=== PATIENT | female | born 1940 | race Caucasian/White ===

== ENCOUNTER 2016-10-29 14:22 | Emergency (ER) | payer OTHER, MEDICAID ==
[~2016-10-29] VITALS: Ht 152.4 cm; Wt 40.8 kg
[~2016-10-29 14:22] MED LIST: ALEN70TA3 PO; AMIT25TA9 PO; ATEN-41 PO; ATENOLOL; DOCU250C PO; DONE10TA44 PO; DULO60CA41 PO; GABA-531 PO; GUAI-787 PO; IBUP-1969 PO; LEVO750T45 PO; LORA0.5T PO; LORAZEPAM; MORP15TA PO; MORPHINE; MULT-1117 PO; OMEP-130 PO; ZIN220 PO; ZOLP5TAB7 PO; ZOLPIDEM; [UNRECOGNIZED DRUG - CODE] PO
[2016-10-29 14:55] VITALS: BP 109/69; PULSE 72; RESP 14; TEMP 97.7; O2SAT 90
--- NOTE | 2016-10-29 15:08 | NUR ---
Patient to ER bed 8 to gown for evaluation. Side rails up.
--- NOTE | 2016-10-29 15:09 | NUR ---
ER at bedside examining patient.
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
[2016-10-29] MEDS ORDERED: LIDOCAINE 1% 10 MG/ML, 20 ML MDV IJ ONE (15:15)
[2016-10-29] MEDS ORDERED: BACITRACIN 1 GM OINT TP ONE (15:15)
--- NOTE | 2016-10-29 15:45 | NUR ---
Patient and daughter given written and verbal discharge instructions and verbalizes understanding. ER MD discussed with patient and daughter the results and treatment provided. ID arm band removed. Rx of Keftab given. Patient educated on pain management and to follow up with PMD. Pain Scale 0/10. Opportunity for questions provided and answered.
[2016-10-29 15:47] VITALS: BP 121/85; PULSE 84; RESP 15; TEMP 97; O2SAT 99
== END 2016-10-29 15:47 | disposition home or self-care (01) ==
LOC: SED 14:22
DX: S81.812A Laceration without foreign body, left lower leg, initial encounter (principal); K21.9 Gastro-esophageal reflux disease without esophagitis; I10 Essential (primary) hypertension; F41.9 Anxiety disorder, unspecified; F32.9 Major depressive disorder, single episode, unspecified; M19.90 Unspecified osteoarthritis, unspecified site; Z88.2 Allergy status to sulfonamides; W22.8XXA Striking against or struck by other objects, initial encounter; Y93.89 Activity, other specified; Y99.8 Other external cause status; Y92.89 Other specified places as the place of occurrence of the external cause
CPT/HCPCS: 12002; 99283; J2001

== ENCOUNTER 2016-10-29 22:06 | Emergency (ER) | payer OTHER, MEDICAID ==
[~2016-10-29] VITALS: Ht 157.5 cm; Wt 59.0 kg
[~2016-10-29 22:06] MED LIST changes: -ATENOLOL; -IBUP-1969 PO; -LORAZEPAM; -MORPHINE; -MULT-1117 PO; -ZIN220 PO; -ZOLPIDEM; -[UNRECOGNIZED DRUG - CODE] PO
[2016-10-29 22:30] VITALS: BP_SYST 121
[2016-10-30 00:57] LABS: ANION GAP 3 (5-15); CALCIUM 8.4 mg/dL (8.4-11.0); CHLORIDE 104 mmol/L (98-107); CREATININE 0.53 mg/dL (0.55-1.30); GLUCOSE 92 mg/dL (70-99); POTASSIUM 3.8 mmol/L (3.5-5.1); SODIUM SERUM 140 mmol/L (136-145); UREA NITROGEN, BLOOD 8 mg/dL (8-21)
[2016-10-30 01:01] LABS: INR 1.2 (0.8-1.2); PROTHROMBIN TIME 13.3 SECS (9.5-12.5)
[2016-10-30 01:02] LABS: ALANINE AMINOTRANSFERASE 14 U/L (12-78); ALBUMIN 2.9 g/dL (3.4-4.8); ASPARTATE AMINOTRANSFERASE 16 U/L (10-37); TOTAL BILIRUBIN 0.4 mg/dL (0.0-1.0); TOTAL PROTEIN, SERUM 6.3 g/dL (6.4-8.3)
[2016-10-30 01:21] LABS: BASOPHILS # (AUTO) 0.1 K/uL (0.0-0.2); BASOPHILS % (AUTO) 1.5 % (0.0-2.0); EOSINOPHILS % (AUTO) 0.7 % (0.0-4.0); HEMATOCRIT 27.6 % (36-48); HEMOGLOBIN 8.7 g/dL (12.0-16.0); LYMPHOCYTES # (AUTO) 1.4 K/uL (1.0-5.5); LYMPHOCYTES % (AUTO) 27.1 % (20.5-51.5); MEAN CORPUSCULAR HEMOGLOBIN 26 pg (27-31); MEAN CORPUSCULAR HGB CONC 32 % (32-36); MEAN CORPUSCULAR VOLUME 81 fL (79.0-98.0); MONOCYTES # (AUTO) 0.6 K/uL (0.0-1.0); MONOCYTES % (AUTO) 11.7 % (1.7-9.3); NEUTROPHILS # (AUTO) 3.1 K/uL (1.8-7.7); PLATELET COUNT (AUTO) 186 K/uL (130-430); RED BLOOD CELL COUNT(AUTO) 3.41 MIL/uL (4.2-6.2); WHITE BLOOD COUNT (AUTO) 5.2 K/uL (4.8-10.8)
[2016-10-30] MEDS ORDERED: MORPHINE 2 MG/ML INJ. SYRINGE IM ONE (02:30)
[2016-10-30] MEDS ORDERED: ACETAMINOPHEN 500 MG TABLET PO ONE (09:30)
[2016-10-30 11:55] VITALS: BP_SYST 128
== END 2016-10-30 11:55 | disposition home or self-care (01) ==
LOC: SED 22:06
DX: L76.22 Postprocedural hemorrhage of skin and subcutaneous tissue following other procedure (principal); K21.9 Gastro-esophageal reflux disease without esophagitis; I10 Essential (primary) hypertension; F32.9 Major depressive disorder, single episode, unspecified; F41.9 Anxiety disorder, unspecified; M19.90 Unspecified osteoarthritis, unspecified site; Z88.2 Allergy status to sulfonamides
CPT/HCPCS: 36415; 80053; 85025; 85610; 85730; 96372; 99284; J2270

== ENCOUNTER 2016-11-25 21:50 | Inpatient (IN) | payer OTHER, MEDICAID ==
[~2016-11-25] VITALS: Ht 154.9 cm; Wt 39.0 kg
[~2016-11-25 21:50] MED LIST changes: +ATENOLOL; +IBUP-1969 PO; +LORAZEPAM; +MORPHINE; +MULT-1117 PO; +ZIN220 PO; +ZOLPIDEM; +[UNRECOGNIZED DRUG - CODE] PO
[2016-11-25 21:58] VITALS: BP 103/66; PULSE 80; RESP 18; TEMP 99.4; O2SAT 98
--- NOTE | 2016-11-25 21:58 | NUR ---
Placed in room 07 . Placed on acid cleaner, blood pressure machine and pulse oximeter. To gown for exam. Side rails up. Report given to LUIS ALBERTO Paul.
--- NOTE | 2016-11-25 22:00 | NUR ---
PT'S FAMILY STATES SHE HAS BEEN MORE CONFUSED THAN NORMAL, WHEN TO GO SEE HER AND DECIDED TO TAKE HER TO THE ER. NO N/V/D, OR LACY. NO REPORT OF FALL. SAFETY PRECAUTIONS IN PLACE, WILL CONTINUE TO MONITOR.
--- NOTE | 2016-11-25 22:20 | NUR ---
PAULO Lim at bedside examining patient.
[2016-11-25] MEDS ORDERED: ESOM20CA38 PO (22:33)
[2016-11-25] MEDS ORDERED: CEPH-568 PO (22:36)
[2016-11-25 22:43] LABS: BILIRUBIN,URINE NEGATIVE (NEGATIVE); BLOOD, URINE NEGATIVE (NEGATIVE); CLARITY/URINE HAZY (CLEAR); COLOR,URINE YELLOW (YELLOW); GLUCOSE,URINE NEGATIVE (NEGATIVE); KETONES,URINE TRACE (NEGATIVE); LEUKOCYTE ESTERASE ,URINE NEGATIVE (NEGATIVE); NITRITE, URINE NEGATIVE (NEGATIVE); PROTEIN URINE TRACE (NEGATIVE); UROBILINOGEN,URINE 0.2 (0.2-1.0)
[2016-11-25] MEDS ORDERED: FOLIC ACID 1 MG, THIAMINE HCL 100 MG, MAGNESIUM SULFATE 1 GM, MVI 10 ML in NACL 0.9% 1,... IV ONE (22:45)
[2016-11-25 23:02] LABS: BASOPHILS % (AUTO) 0.5 % (0.0-2.0); HEMATOCRIT 29.3 % (36-48); HEMOGLOBIN 8.9 g/dL (12.0-16.0); LYMPHOCYTES % (AUTO) 27.1 % (20.5-51.5); MEAN CORPUSCULAR HEMOGLOBIN 24 pg (27-31); MEAN CORPUSCULAR HGB CONC 30 % (32-36); MEAN CORPUSCULAR VOLUME 79 fL (79.0-98.0); MONOCYTES # (AUTO) 0.5 K/uL (0.0-1.0); MONOCYTES % (AUTO) 13.2 % (1.7-9.3); NEUTROPHILS # (AUTO) 2.4 K/uL (1.8-7.7); NEUTROPHILS % (AUTO) 58.2 % (40.0-70.0); PLATELET COUNT (AUTO) 240 K/uL (130-430); RED BLOOD CELL COUNT(AUTO) 3.73 MIL/uL (4.2-6.2); RED CELL DISTRIBUTION WIDTH 18.4 % (9.0-15.0); WHITE BLOOD COUNT (AUTO) 3.9 K/uL (4.8-10.8)
[2016-11-25 23:18] LABS: ALANINE AMINOTRANSFERASE 19 U/L (12-78); ALBUMIN 3.1 g/dL (3.4-4.8); ASPARTATE AMINOTRANSFERASE 26 U/L (10-37); CALCIUM 9.1 mg/dL (8.4-11.0); CHLORIDE 98 mmol/L (98-107); CREATININE 0.88 mg/dL (0.55-1.30); GLUCOSE 118 mg/dL (70-99); SALICYLATE 1 mg/dL (3-30); SODIUM SERUM 131 mmol/L (136-145); TOTAL BILIRUBIN 0.3 mg/dL (0.0-1.0); TOTAL PROTEIN, SERUM 7.1 g/dL (6.4-8.3)
[2016-11-25 23:22] LABS: ALCOHOL, BLOOD < 3 mg/dL (<10); ANION GAP < 3 (5-15)
[2016-11-25 23:23] LABS: ACETAMINOPHEN < 1 ug/mL (1-30)
[2016-11-25 23:29] LABS: BACTERIA,URINE FEW /HPF (None Seen); MUCUS,URINE None Seen /LPF (None Seen); WBC,URINE 0-3 /HPF (0-3)
[2016-11-25 23:32] LABS: UREA NITROGEN, BLOOD 12 mg/dL (8-21)
[2016-11-25] MEDS ORDERED: THIAMINE HCL 100 MG/ML VIAL ONE (23:33)
[2016-11-25] MEDS ORDERED: MAGNESIUM SULFATE 1 GM/2 ML VIAL ONE (23:33)
[2016-11-25] MEDS ORDERED: MVI 10 ML VIAL IV ONE (23:33)
[2016-11-25] MEDS ORDERED: FOLIC ACID 5 MG/ML VIAL IV ONE (23:33)
[2016-11-25 23:36] LABS: BARBITURATE, URINE NEGATIVE (NEG <=200); METHAMPHETAMINES SCREEN,URINE NEGATIVE (NEG <=500); URINE AMPHETAMINE NEGATIVE (NEG <=500); URINE METHADONE NEGATIVE (NEG <=200)
[2016-11-25 23:37] LABS: BENZODIAZEPINE, URINE POSITIVE (NEG <=150); CANNABINOID, URINE NEGATIVE (NEG <=50); COCAINE, URINE NEGATIVE (NEG <=150); OPIATE, URINE POSITIVE (NEG <=100); PHENCYCLIDINE SCREEN,URINE NEGATIVE (NEG <=25); UR TRICYCLIC ANTIDEPRESSANTS POSITIVE (NEG <=300); URINE OXYCODONE SCREEN NEGATIVE (NEG <=100); URINE PROPOXYPHENE SCREEN NEGATIVE (NEG <=300)
[2016-11-25 23:40] LABS: INR 1.1 (0.8-1.2); PROTHROMBIN TIME 12.2 SECS (9.5-12.5)
[2016-11-26] MEDS ORDERED: ALENDRONATE SODIUM 70 MG TABLET (FOSAMAX) PO SCH (02:30)
[2016-11-26] MEDS ORDERED: guaiFENesin 200 MG/10 ML UDC PO PRN (02:30)
--- NOTE | 2016-11-26 03:18 | NUR ---
Patient will be admitted to care of DR. LIND. Admitted to MS unit. Will go to room 133A. All Belongings SENT WITH PT. Summary report printed. Report given to RODRIGO HUDSON.
[2016-11-26 03:30] VITALS: BP 114/59; PULSE 70; RESP 18; TEMP 97.5; O2SAT 98
--- NOTE | 2016-11-26 03:30 | NUR ---
Admission Notes Pt is A/Ox2-3, able to make needs known and knows why she came to the hospital, stating "Wanted to make sure that I wasnt confused." Pt denies any pain or sob at this time. Pt oriented to surroundings, call light, and phone. IV to left hand #22g noted, flushed well with NS and re taped and wrapped with kerlix. Multiple open areas noted on skin, pictures taken, documented and filed. Pt placed on air mattress for comfort and cynthia care provided. Pt stated she wanted to get some sleep. Breathing is even and unlabored. Pt stated last bowel movement yesterday. Pain pump noted to left lower abdominal quadrant but not working according to pt. Redness with open wound noted to left trinh, open to air. Pt stating that she fell at home, yellow band placed. Mild excoriation noted to buttocks, z guard applied. Unable to fully discuss plan of care with pt due to passiveness and lack of interest at this time, no family at bedside available. Personal belongings completed. Safety precautions in place, side rails up x3 with bed in lowest, locked position, bed alarm on, and pt placed in room close to nurses station. All needs met at this time. Call light in reach. Will continue to monitor.
[2016-11-26 04:14] VITALS: BP 95/48; PULSE 96; RESP 17; TEMP 98; O2SAT 99
--- NOTE | 2016-11-26 05:29 | NUR ---
Rounds Pt is sleeping comfortably at this time. No acute distress or sob noted. IV intact. All needs met. Safely precautions in place. Call light in hand. Will continue to monitor.
[2016-11-26 07:28] LABS: CALCIUM 8.3 mg/dL (8.4-11.0); CREATININE 0.59 mg/dL (0.55-1.30); GLUCOSE 91 mg/dL (70-99); UREA NITROGEN, BLOOD 10 mg/dL (8-21)
[2016-11-26 07:47] LABS: BASOPHILS % (AUTO) 0.3 % (0.0-2.0); EOSINOPHILS # (AUTO) 0.1 K/uL (0.0-0.4); EOSINOPHILS % (AUTO) 2.6 % (0.0-4.0); HEMATOCRIT 27.1 % (36-48); HEMOGLOBIN 8.2 g/dL (12.0-16.0); LYMPHOCYTES # (AUTO) 1.4 K/uL (1.0-5.5); LYMPHOCYTES % (AUTO) 36.2 % (20.5-51.5); MEAN CORPUSCULAR HEMOGLOBIN 24 pg (27-31); MEAN CORPUSCULAR HGB CONC 30 % (32-36); MEAN CORPUSCULAR VOLUME 79 fL (79.0-98.0); MONOCYTES # (AUTO) 0.7 K/uL (0.0-1.0); MONOCYTES % (AUTO) 17.1 % (1.7-9.3); NEUTROPHILS # (AUTO) 1.6 K/uL (1.8-7.7); NEUTROPHILS % (AUTO) 43.8 % (40.0-70.0); PLATELET COUNT (AUTO) 202 K/uL (130-430); RED BLOOD CELL COUNT(AUTO) 3.45 MIL/uL (4.2-6.2); WHITE BLOOD COUNT (AUTO) 3.8 K/uL (4.8-10.8)
[2016-11-26 08:00] VITALS: BP 98/58; PULSE 85; RESP 18; TEMP 97.8; O2SAT 97
[2016-11-26 08:00] LABS: POTASSIUM 4.2 mmol/L (3.5-5.1)
--- NOTE | 2016-11-26 08:01 | NUR ---
Closing Notes Pt is sleeping comfortably, easily arousable. No acute distress or sob noted. New IV started to RFA #24g and LFA #24g earlier this am at 630, IV fluids infusing well as ordered. VSS. All needs met at this time. Safety precautions in place. Call light in hand. Will continue to monitor.
[2016-11-26] MEDS: DULoxetine HCL 30 MG CAPSULE.DR (CYMBALTA) PO SCH ×2 (08:11→22:09)
[2016-11-26] MEDS: CEPHALEXIN 500 MG CAPSULE PO SCH ×4 (08:11→22:09)
[2016-11-26] MEDS: GABAPENTIN 300 MG CAPSULE PO SCH ×3 (08:11→22:09)
[2016-11-26] MEDS: DOCUSATE SODIUM 250 MG CAPSULE PO SCH (08:11)
[2016-11-26] MEDS: LEVOFLOXACIN 500 MG TABLET PO SCH (08:11)
[2016-11-26] MEDS: MORPHINE SULFATE 30 MG Immediate Release TABLET PO SCH ×2 (08:11→22:09)
[2016-11-26 08:13] LABS: ANION GAP < 3 (5-15); CHLORIDE 103 mmol/L (98-107); SODIUM SERUM 135 mmol/L (136-145)
--- NOTE | 2016-11-26 08:25 | NUR ---
PATIENT IS A/OX3. PATIENT IS BED RESTING. IV NOTED ON RIGHT AND LEFT FA, #24; LEFT IV INFUSED WITH NS 100ML/HR. NO SIGNS OF DISTRESS. BREATHING IS NON LABORED. SAFETY MEASURES ARE IN PLACE. CALL LIGHT IS IN PLACE. WILL CONTINUE TO MONITOR.
[2016-11-26] MEDS: ATENOLOL 25 MG TABLET(TENORMIN) PO SCH (09:00)
[2016-11-26] MEDS: LORazepam 1 MG TABLET PO SCH ×3 (09:00→23:28)
--- NOTE | 2016-11-26 09:14 | NUR ---
Nutrition Update Amando Scale 15 noted. Pt admitted for ALOC, dehydration. Diet: pureed BMI: 16.4 kg/m2 RD to follow per nutrition care standards.
[2016-11-26] MEDS: NACL 0.9% 1,000 ML IV SCH ×3 (09:25→22:47)
--- NOTE | 2016-11-26 11:20 | NUR ---
PATIENT IS AT SLEEPING, NO SIGNS OF DISTRESS NOTED.
[2016-11-26 12:00] VITALS: BP 122/67; PULSE 76; RESP 18; TEMP 99.3; O2SAT 96
[2016-11-26] MEDS ORDERED: BISACODYL 10 MG/SUPPOSITORY RC PRN (12:15)
--- NOTE | 2016-11-26 13:10 | NUR ---
PATIENT FINISHES LUNCH WITHOUT DISTRESS.
--- NOTE | 2016-11-26 15:00 | NUR ---
PATIENT IS PLACED ON BEDPAN FOR VOIDING. NO SIGNS OF DISTRESS NOTED.
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
[2016-11-26 17:36] VITALS: BP 123/64; PULSE 74; RESP 18; TEMP 98.7; O2SAT 96
--- NOTE | 2016-11-26 18:30 | NUR ---
PATIENT STATES THAT SHE WOULD LIKE TO EAT SOMETHING MORE SOLID, BUT ALSO C/O PAIN IN THE MOUTH. DR. LIND IS CALLED. AWAITING CALL BACK.
--- NOTE | 2016-11-26 19:20 | NUR ---
INITIAL NOTES; -Pt is a/ox3, resting in bed. Pt denies any chest pain,pain,sob,or any acute distress. Vital signs 96.8, 116/60,84,20,t1vld=11% r/a. 2 IV sites of left f/a rt hand, patent, both #24, no s/s any infiltration noted after flushed with NS,drsg cdi. IVF NS @ 100ml/hr. Lung sounds clear throughout all lobes. BS present,abdomen soft & nondistended. Assistance with bedpan. Opened wound left trinh-no drainage noted-warm and redness elevated with pillow. Rt lower leg and foot + 1 pitting edema noted.Rt lower leg dry scab. Bassem pedi pulse normal, present. All safety measures in place. Discussed poc, all safety measures, instructed pt not to get out bed by self, if needs assistance, to use call light for assistance, pt verbalized understanding. Fall precaution in place. Call light w/in reach. Continue to monitor pt.
[2016-11-26] MEDS ORDERED: HYDROcodone/ACETAMIN 5-325 MG TAB (NORCO/ VICODIN) PO PRN (20:00)
[2016-11-26] MEDS: DONEPEZIL HCL 5 MG TABLET (ARICEPT) PO SCH (22:09)
[2016-11-26] MEDS: ZOLPIDEM TARTRATE 5 MG TABLET PO SCH (22:09)
[2016-11-26] MEDS: AMITRIPTYLINE HCL 25 MG TABLET (ELAVIL) PO SCH (22:09)
--- NOTE | 2016-11-26 22:09 | NUR ---
ROUNDS; - Pt is c/o generalized pain. Gave all po medications except Ativan po, pt is able to take whole pills w/out crushed, pt tolerated wel, pt wanted Ativan po later. Instructed pt to inform nurse when want to take Ativan, pt verbalized understanding. IV site of left f/a patent,no s/s any infiltration noted. IVF NS @ 100ml/hr. Elevate both lower extremities with pillows. All safety measures in place. Fall precaution in place. Call light w/in reach. Continue to monitor pt.
--- NOTE | 2016-11-26 23:28 | NUR ---
ROUNDS; ATIVAN 0.5 MG PO GIVEN -Ativan 0.5mg po given upon pt requested, pt tolerated well. Pt denies any chest pain,pain, or any acute distress this time. IV site of left f/a patent,no s/s any infiltration noted. IVF NS @ 100ml/hr. Elevate both lower extremities with pillows. All safety measures in place. Bed alarmed, low position, side rails x3. Fall precaution in place. Call light w/in reach. Continue to monitor pt.
--- NOTE | 2016-11-26 23:51 | NUR ---
SANDWICH GIVEN -Pt is hungry, gave a sandwich, pt tolerated.
[2016-11-27 01:17] VITALS: BP 134/64; PULSE 93; RESP 18; TEMP 97.2; O2SAT 93
--- NOTE | 2016-11-27 01:50 | NUR ---
ROUNDS; -Pt is resting. No s/s any chest pain,pain, or any acute distress noted. IV site of left f/a patent,no s/s any infiltration noted. IVF NS @ 100ml/hr. Elevate both lower extremities with pillows. All safety measures in place. Bed alarmed, low position, side rails x3. Fall precaution in place. Call light w/in reach. Continue to monitor
[2016-11-27 04:00] VITALS: BP 151/75; PULSE 83; RESP 16; TEMP 98.4
[2016-11-27] MEDS: NACL 0.9% 1,000 ML IV SCH ×2 (05:30→09:51)
[2016-11-27 06:23] LABS: BASOPHILS % (AUTO) 0.2 % (0.0-2.0); EOSINOPHILS # (AUTO) 0.1 K/uL (0.0-0.4); EOSINOPHILS % (AUTO) 1.4 % (0.0-4.0); HEMATOCRIT 25.9 % (36-48); HEMOGLOBIN 7.9 g/dL (12.0-16.0); LYMPHOCYTES # (AUTO) 1.5 K/uL (1.0-5.5); LYMPHOCYTES % (AUTO) 30.9 % (20.5-51.5); MEAN CORPUSCULAR HEMOGLOBIN 24 pg (27-31); MEAN CORPUSCULAR HGB CONC 31 % (32-36); MEAN CORPUSCULAR VOLUME 79 fL (79.0-98.0); MONOCYTES # (AUTO) 0.5 K/uL (0.0-1.0); NEUTROPHILS # (AUTO) 2.9 K/uL (1.8-7.7); NEUTROPHILS % (AUTO) 57.5 % (40.0-70.0); PLATELET COUNT (AUTO) 222 K/uL (130-430); RED BLOOD CELL COUNT(AUTO) 3.27 MIL/uL (4.2-6.2); RED CELL DISTRIBUTION WIDTH 18.5 % (9.0-15.0)
--- NOTE | 2016-11-27 06:41 | NUR ---
CLOSING NOTES; -Pt is resting. No s/s any chest pain,pain, or any acute distress noted. IV site of left f/a patent,no s/s any infiltration noted. IVF NS @ 100ml/hr. Elevate both lower extremities with pillows. All safety measures in place. Bed alarmed, low position, side rails x3. Fall precaution in place. Call light w/in reach. Will endorse to coming nurse to continue care.
[2016-11-27 06:48] LABS: ANION GAP 2 (5-15); CALCIUM 7.7 mg/dL (8.4-11.0); CHLORIDE 106 mmol/L (98-107); CREATININE 0.48 mg/dL (0.55-1.30); GLUCOSE 89 mg/dL (70-99); POTASSIUM 4.2 mmol/L (3.5-5.1); SODIUM SERUM 138 mmol/L (136-145); UREA NITROGEN, BLOOD 4 mg/dL (8-21)
--- NOTE | 2016-11-27 08:00 | NUR ---
PATIENT IS CONFUSED AND SOMEWHAT AGITATED. IV NOTED ON RIGHT AND LEFT FA, #24; LEFT IV INFUSED WITH NS 100ML/HR. BREATHING IS NON LABORED. SAFETY MEASURES ARE IN PLACE. CALL LIGHT IS IN PLACE. WILL CONTINUE TO MONITOR.
[2016-11-27] MEDS: LORazepam 1 MG TABLET PO SCH (09:00)
[2016-11-27] MEDS: DOCUSATE SODIUM 250 MG CAPSULE PO SCH (09:00)
--- NOTE | 2016-11-27 09:28 | NUR ---
PATIENT'S STILL CONFUSED AND AGITATED. DR. LIND IS INFORMED OF THE SITUATION.
[2016-11-27] MEDS: DULoxetine HCL 30 MG CAPSULE.DR (CYMBALTA) PO SCH ×2 (09:49→21:06)
[2016-11-27] MEDS: LEVOFLOXACIN 500 MG TABLET PO SCH (09:49)
[2016-11-27] MEDS: CEPHALEXIN 500 MG CAPSULE PO SCH ×2 (09:49→13:00)
[2016-11-27] MEDS: MORPHINE SULFATE 30 MG Immediate Release TABLET PO SCH (09:50)
[2016-11-27] MEDS: GABAPENTIN 300 MG CAPSULE PO SCH ×3 (09:50→21:06)
[2016-11-27] MEDS: ATENOLOL 25 MG TABLET(TENORMIN) PO SCH (09:50)
[2016-11-27 10:21] LABS: CREATINE KINASE, TOTAL 57 U/L (26-192)
--- NOTE | 2016-11-27 10:30 | NUR ---
DR. LIND CALLS BACK , AND PATIENT'S CURRENT CONDITION IS INFORMED. ORDERS WERE GIVEN, WILL CONTINUE TO MONITOR.
--- NOTE | 2016-11-27 12:25 | NUR ---
DC PLANNING: Spoke with patient at bedside. the pt. is aao to self, place and time. Speaking with pt. about DCP to snf, the pt. stated " she is okay to snf per dr. Morataya pmd" hvac commercial salesperson: tanika August # [phone]. Cm to f/u with dr. Morataya for possible [facility] or [facility].
[2016-11-27] MEDS ORDERED: MORPHINE 2 MG/ML INJ. SYRINGE IVP PRN (14:45)
[2016-11-27] MEDS ORDERED: LORazepam 1 MG TABLET PO PRN (15:00)
[2016-11-27 15:01] VITALS: BP 151/83; PULSE 101; RESP 19; TEMP 99; O2SAT 91
[2016-11-27] MEDS: MORPHINE 2 MG/ML INJ. SYRINGE IVP PRN ×2 (15:21→20:45)
--- NOTE | 2016-11-27 15:43 | NUR ---
CALLED PSYCH CONSULT TO DR ELI, RE: PYSCHOSIS. SPOKE TO MATT
--- NOTE | 2016-11-27 19:30 | NUR ---
OPENING NOTES RECEIVED REPORT AT BEDSIDE FROM DAYSHIFT NURSE. PATIENT IS RESTLESS AND AGITATED. SHE DOES NOT KNOW WHERE SHE IS. NO ACUTE S/S OF ACUTE DISTRESS NOTED. BED IN LOWEST POSITION, BED ALARM ON, CALL LIGHT WITHIN REACH. WILL CONTINUE TO MONITOR FREQUENTLY.
[2016-11-27 19:55] VITALS: BP 145/65; PULSE 110; RESP 24; TEMP 101.5; O2SAT 97
--- NOTE | 2016-11-27 19:55 | NUR ---
FEVER PATIENT HAS A FEVER OF 101.5, COOLING MEASURES TAKEN.
--- NOTE | 2016-11-27 20:21 | NUR ---
PAGED DR LIND SPOKE WITH FORREST
--- NOTE | 2016-11-27 20:22 | NUR ---
DR. LIND RETURNED CALL DR. LIND PLACED ORDERS TO TREAT THE FEVER, ANTIBIOTICS, AND FURTHER TESTING.
[2016-11-27] MEDS: ZOLPIDEM TARTRATE 5 MG TABLET PO SCH (21:06)
[2016-11-27] MEDS: AMITRIPTYLINE HCL 25 MG TABLET (ELAVIL) PO SCH (21:06)
[2016-11-27] MEDS: DONEPEZIL HCL 5 MG TABLET (ARICEPT) PO SCH (21:06)
[2016-11-27] MEDS ORDERED: CEFEPIME 1 GM/VIAL (MAXIPIME) ONE (21:36)
[2016-11-27] MEDS: ACETAMINOPHEN 325 MG TABLET PO PRN (21:56)
[2016-11-27] MEDS: CEFEPIME 1 GM in D5W 50 ML IV SCH (21:56)
--- NOTE | 2016-11-27 21:56 | NUR ---
ANTIBIOTIC RECEIVED ANTIBIOTIC INFUSING, PATIENT TOLERATED WELL. NO IMMEDIATE S/S OF ALLERGIC REACTION NOTED.
[2016-11-27 22:39] LABS: BILIRUBIN,URINE NEGATIVE (NEGATIVE); BLOOD, URINE NEGATIVE (NEGATIVE); CLARITY/URINE CLEAR (CLEAR); COLOR,URINE YELLOW (YELLOW); GLUCOSE,URINE NEGATIVE (NEGATIVE); KETONES,URINE TRACE (NEGATIVE); LEUKOCYTE ESTERASE ,URINE NEGATIVE (NEGATIVE); NITRITE, URINE NEGATIVE (NEGATIVE); PH,URINE 7.5 (5.0-8.0); PROTEIN URINE NEGATIVE (NEGATIVE); UROBILINOGEN,URINE 0.2 (0.2-1.0)
--- NOTE | 2016-11-27 23:00 | NUR ---
ROUNDS PATIENT IS SLEEPING COMFORTABLY, WITH VISIBLE RISE AND FALL OF CHEST. IV IS INFUSING. NO S/S OF ACUTE DISTRESS NOTED. FALL PRECAUTIONS IN PLACE, CALL LIGHT WITHIN REACH. WILL CONTINUE TO MONITOR FREQUENTLY.
--- NOTE | 2016-11-28 00:18 | NUR ---
ROUNDS PATIENT IS SLEEPING COMFORTABLY, WITH VISIBLE RISE AND FALL OF CHEST, AND AUDIBLE SNORING. IV IS INFUSING. FALL PRECAUTIONS IN PLACE, CALL LIGHT WITHIN REACH. WILL CONTINUE TO MONITOR FREQUENTLY.
[2016-11-28 01:01] VITALS: BP 152/82; PULSE 87; RESP 24; TEMP 98.6; O2SAT 93
--- NOTE | 2016-11-28 02:15 | NUR ---
ROUNDS PATIENT IS SLEEPING WITH VISIBLE RISE AND FALL TO CHEST. IV FLUIDS INFUSING, NO SIGNS OF INFILTRATION AT IV SITE. NO ACUTE S/S OF DISTRESS NOTED. BED IN LOWEST POSITION, BED ALARM ON, CALL LIGHT WITHIN REACH. WILL CONTINUE TO MONITOR FREQUENTLY.
[2016-11-28 04:00] VITALS: BP 130/73; PULSE 85; RESP 18; TEMP 98.3; O2SAT 92
--- NOTE | 2016-11-28 04:29 | NUR ---
ROUNDS PATIENT IS NOW AFEBRIL, AWAKE, ALERT AND ORIENTED X4. PATIENT IS CALM AND RESTING IN SEMI-FUNG'S POSITION. LEFT LEG DRESSING WAS REDRESSED. NO ACUTE S/S OF DISTRESS NOTED. FALL PRECAUTIONS IN PLACE, BED ALARM ON, CALL LIGHT WITHIN REACH. WILL CONTINUE TO MONITOR FREQUENTLY.
[2016-11-28] MEDS: NACL 0.9% 1,000 ML IV SCH ×2 (04:51→18:07)
--- NOTE | 2016-11-28 06:41 | NUR ---
CLOSING NOTES PATIENT IS SLEEPING COMFORTABLY AND CALMLY. AFEBRILE AND NO S/S OF ACUTE DISTRESS NOTED. IV FLUIDS ARE INFUSING WITH NO SIGNS OF INFILTRATION AT IV SITE. BED IN LOWEST POSITION, BED ALARM ON, CALL LIGHT WITHIN REACH. WILL ENDORSE CARE TO DAY SHIFT NURSE.
[2016-11-28 07:13] LABS: BASOPHILS % (AUTO) 0.3 % (0.0-2.0); EOSINOPHILS % (AUTO) 0.5 % (0.0-4.0); HEMATOCRIT 26.3 % (36-48); HEMOGLOBIN 8.1 g/dL (12.0-16.0); LYMPHOCYTES # (AUTO) 1.4 K/uL (1.0-5.5); LYMPHOCYTES % (AUTO) 23.6 % (20.5-51.5); MEAN CORPUSCULAR HEMOGLOBIN 24 pg (27-31); MEAN CORPUSCULAR HGB CONC 31 % (32-36); MEAN CORPUSCULAR VOLUME 77 fL (79.0-98.0); MONOCYTES # (AUTO) 0.7 K/uL (0.0-1.0); MONOCYTES % (AUTO) 11.2 % (1.7-9.3); NEUTROPHILS % (AUTO) 64.4 % (40.0-70.0); PLATELET COUNT (AUTO) 212 K/uL (130-430); RED CELL DISTRIBUTION WIDTH 18.6 % (9.0-15.0); WHITE BLOOD COUNT (AUTO) 6.1 K/uL (4.8-10.8)
[2016-11-28 07:20] LABS: ANION GAP 4 (5-15); CHLORIDE 105 mmol/L (98-107); CREATININE 0.53 mg/dL (0.55-1.30); GLUCOSE 96 mg/dL (70-99); POTASSIUM 3.6 mmol/L (3.5-5.1); SODIUM SERUM 137 mmol/L (136-145); UREA NITROGEN, BLOOD 4 mg/dL (8-21)
--- NOTE | 2016-11-28 08:00 | NUR ---
AM wound care with assessment and vital signs. Instructions to DELINEATOR to get coffee for patient.
[2016-11-28 08:06] VITALS: BP 108/53; PULSE 85; RESP 18; TEMP 99.7; O2SAT 94
--- NOTE | 2016-11-28 10:00 | NUR ---
Medication pass. Patient notes she took too much pain medication and thinks it brought her into the hospital with confusion this time.
[2016-11-28] MEDS: ATENOLOL 25 MG TABLET(TENORMIN) PO SCH (10:27)
[2016-11-28] MEDS: GABAPENTIN 300 MG CAPSULE PO SCH ×3 (10:27→21:08)
[2016-11-28] MEDS: CEFEPIME 1 GM in D5W 50 ML IV SCH (10:27)
[2016-11-28] MEDS: DOCUSATE SODIUM 250 MG CAPSULE PO SCH (10:27)
[2016-11-28] MEDS: RIVAROXABAN 10 MG TABLET PO SCH (10:28)
[2016-11-28] MEDS: DULoxetine HCL 30 MG CAPSULE.DR (CYMBALTA) PO SCH ×2 (10:28→21:09)
[2016-11-28 12:00] VITALS: BP 103/94; PULSE 78; RESP 18; TEMP 99.2; O2SAT 94
--- NOTE | 2016-11-28 12:00 | NUR ---
Check on patient for safety at this time. Repositioned heels to float off bed on pillows.
--- NOTE | 2016-11-28 14:00 | NUR ---
Rounds to change dressing of legs and heel at patient request.
--- NOTE | 2016-11-28 15:00 | NUR ---
Doctor Morataya rounds at this time. Discussion about wounds of patient. Request for wound care nurse. Doctor may discharge patient before Wednesday.
[2016-11-28 15:36] VITALS: Ht 154.9 cm; Wt 39.0 kg
[2016-11-28 16:13] VITALS: BP 110/68; PULSE 72; RESP 18; TEMP 98; O2SAT 94
--- NOTE | 2016-11-28 18:00 | NUR ---
Rounds to place IV antibiotic. Patient tolerated well.
[2016-11-28] MEDS: VANCOMYCIN HCL 1,000 MG in NS 250 ML IV SCH (18:06)
[2016-11-28 20:00] VITALS: BP 102/54; PULSE 84; RESP 20; TEMP 99; O2SAT 90
--- NOTE | 2016-11-28 20:05 | NUR ---
ASSISTED PT. TO BED MAXWELL Assisted pt. to bedpan to void. Pt. tolerated well. No s/s of acute distress. Safety and fall precautions in place. Encouraged pt. to use call light for needs. Call light to right hand. Bed alarm on. Will continue to monitor.
--- NOTE | 2016-11-28 20:06 | NUR ---
OPENING NOTE Pt. and bedside report received from day shift nurse. Pt. is awake, resting on airloss mattress bed, talking to daughter at bedside. No s/s of acute distress. Received pt. with IV abx infusing to right f/a. Pt. c/o itchiness. Redressed site as requested by pt. Encouraged pt. not to scratch site and educated possible side effects and risk for infection. No s/s of infiltration but will continue to monitor. Continued ABX infusion to right hand. Educated pt. regarding safety precautions. Plan of care discussed. Yellow fall band on. Dressings to bilateral lower extremities are CDI. Bed alarm on. Will continue to monitor.
[2016-11-28] MEDS: AMITRIPTYLINE HCL 25 MG TABLET (ELAVIL) PO SCH (21:09)
[2016-11-28] MEDS: DONEPEZIL HCL 5 MG TABLET (ARICEPT) PO SCH (21:09)
[2016-11-28] MEDS: ZOLPIDEM TARTRATE 5 MG TABLET PO SCH (21:10)
[2016-11-28] MEDS: MUPIROCIN 2% TOPICAL OINTMENT 22 GM TP SCH (21:20)
--- NOTE | 2016-11-28 22:39 | NUR ---
TRANSFERRED TO ANOTHER BED ALARM BED/DUE MEDS Late entry due to pt. care. Due meds administered as ordered. Pt. tolerated well. Educated pt. regarding medication and s/e. Pt. was transferred to another bed alarm bed d/t previous bed alarm not working properly. Encouraged pt. to use call light for needs. Denies any pain or discomfort at this time. Will continue to monitor.
[2016-11-29] VITALS (7 sets, daily range): BP systolic 98–114; BP diastolic 50–62; PULSE 60–72; RESP 16–18; TEMP 97.7–99; O2SAT 92–97
--- NOTE | 2016-11-29 00:14 | NUR ---
REQUESTED LIGHTS TO BE TURNED OFF Pt. requested for lights to be turned off. No other needs at this time. Safety precautions in place. Bed alarm on. Call light to right hand. Will continue to monitor.
--- NOTE | 2016-11-29 00:56 | NUR ---
BEDPAN Assisted pt. to bedpan to void. Tolerated well. Denies any pain or discomfort at this time. Requested for hallway light to be turned on. Safety precautions in place. Bed alarm on. Encouraged pt. to use call light, which she is able to, to right hand. Will continue to monitor.
--- NOTE | 2016-11-29 02:04 | NUR ---
ROUNDS Pt. is awake, and resting quietly in bed. Respirations are even and unlabored with visible chest rise and fall. No s/s of acute distress. Safety precautions in place. Bed alarm on. Call light to right hand. Will continue to monitor.
--- NOTE | 2016-11-29 02:24 | NUR ---
IV BEEPING Pt. used call light to notify regarding IV pump beeping. Primed IV line, working well. Pt. is awake, walking tv and denies any pain or discomfort. No s/s of acute distress. Safety precautions in place. Bed alarm on. Call light to right hand. Will continue to monitor.
--- NOTE | 2016-11-29 03:12 | NUR ---
ROUNDS Pt. is resting quietly in bed with eyes closed. Respirations are even and unlabored with visible chest rise and fall; no s/s of acute distress. Call light to right hand. Safety precautions in place. Bed alarm on. Will continue to monitor.
--- NOTE | 2016-11-29 04:04 | NUR ---
ROUNDS Pt. is resting quietly in bed with eyes closed. Respirations are even and unlabored with visible chest rise and fall. No s/s of acute distress. Safety precautions in place. Bed alarm on. Call light to right hand. Will continue to monitor.
--- NOTE | 2016-11-29 04:10 | NUR ---
Psych Consultation Follow-up Reason for consultation: Psychosis Was consult called: Yes Person who was notified: Chanell Consulting Physician: Dr Campos, Said; Dr Willy Malik is on-call Director Engineering Specialty: Psychology Director Engineering Ordered By: Dr Morataya
--- NOTE | 2016-11-29 04:29 | NUR ---
PSYCH CONSULT F/U Dr. Malik butadiene converter operator for Dr. Campos. Called for consultation f/u by Jose Rosario, community nurse.
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
[2016-11-29 05:36] LABS: BASOPHILS % (AUTO) 0.5 % (0.0-2.0); EOSINOPHILS # (AUTO) 0.1 K/uL (0.0-0.4); EOSINOPHILS % (AUTO) 2.6 % (0.0-4.0); HEMATOCRIT 27.4 % (36-48); HEMOGLOBIN 8.6 g/dL (12.0-16.0); LYMPHOCYTES # (AUTO) 1.4 K/uL (1.0-5.5); LYMPHOCYTES % (AUTO) 26.7 % (20.5-51.5); MEAN CORPUSCULAR HEMOGLOBIN 25 pg (27-31); MEAN CORPUSCULAR HGB CONC 32 % (32-36); MEAN CORPUSCULAR VOLUME 78 fL (79.0-98.0); MONOCYTES # (AUTO) 0.7 K/uL (0.0-1.0); MONOCYTES % (AUTO) 13.6 % (1.7-9.3); NEUTROPHILS % (AUTO) 56.6 % (40.0-70.0); PLATELET COUNT (AUTO) 224 K/uL (130-430); RED BLOOD CELL COUNT(AUTO) 3.53 MIL/uL (4.2-6.2); RED CELL DISTRIBUTION WIDTH 19.1 % (9.0-15.0); WHITE BLOOD COUNT (AUTO) 5.2 K/uL (4.8-10.8)
[2016-11-29 05:40] LABS: CALCIUM 8.2 mg/dL (8.4-11.0); CHLORIDE 105 mmol/L (98-107); CREATININE 0.59 mg/dL (0.55-1.30); GLUCOSE 101 mg/dL (70-99); POTASSIUM 4.3 mmol/L (3.5-5.1); SODIUM SERUM 136 mmol/L (136-145); UREA NITROGEN, BLOOD 9 mg/dL (8-21)
[2016-11-29 06:06] LABS: ANION GAP < 3 (5-15)
--- NOTE | 2016-11-29 06:28 | NUR ---
BEDPAN/CLOSING NOTES Assisted pt. to bedpan to void; tolerated well. All needs met throughout shift. No significant changes. Pt. is stable with no s/s of acute distress. Safety precautions in place. Bed alarm on. Will endorse care to oncoming day shift nurse.
[2016-11-29] MEDS: ACETAMINOPHEN 325 MG TABLET PO PRN (07:22)
--- NOTE | 2016-11-29 07:30 | NUR ---
AM vital signs and assessment. Student nurse assist patient to commode. EDITOR PUBLICATIONS assist also repositioning and pericare.
--- NOTE | 2016-11-29 09:20 | NUR ---
Medication rounds. Needs met at this time. Patient asking about discharge home today. Says she wants help to relieve sores on the inside of her lower lip.
[2016-11-29] MEDS: DOCUSATE SODIUM 250 MG CAPSULE PO SCH (09:30)
[2016-11-29] MEDS: DULoxetine HCL 30 MG CAPSULE.DR (CYMBALTA) PO SCH ×2 (09:31→20:51)
[2016-11-29] MEDS: ATENOLOL 25 MG TABLET(TENORMIN) PO SCH (09:33)
[2016-11-29] MEDS: GABAPENTIN 300 MG CAPSULE PO SCH ×3 (09:33→20:52)
[2016-11-29] MEDS: RIVAROXABAN 10 MG TABLET PO SCH (09:36)
[2016-11-29] MEDS: MUPIROCIN 2% TOPICAL OINTMENT 22 GM TP SCH ×2 (09:37→20:52)
--- NOTE | 2016-11-29 10:00 | NUR ---
Assist with getting extra cup of coffee for patient at this time. Declines snack at this time.
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
[2016-11-29] MEDS: NACL 0.9% 1,000 ML IV SCH (14:31)
--- NOTE | 2016-11-29 14:50 | NUR ---
Rounds by Psychiatrist MD at this time. Notes patient is very talkative and is on the appropriate treatment for depression and history of alcoholism.
--- NOTE | 2016-11-29 15:00 | NUR ---
Rounds by Doctor Zehra. Mentioned pain in lip experienced by sores the patient says she wants treatment for. MD notes patient mentioned to him though he says they are brought on by infection.
--- NOTE | 2016-11-29 15:18 | NUR ---
DC PLANNING: S/W DAUGHTER AND PATIENT AT BEDSIDE, DAUGHTER WANTS THE PT TO GO TO [facility] FIRST BEFORE GOING BACK TO [facility] FOR PT. BUT THE PATIENT WANTS TO GO STRAIGHT TO [facility] BECAUSE ACCORDING TO HER SHE IS MORE COHERENT, CAN TAKE CARE OF HERSELF. WAITING FOR MD'S EVALUATION AND DC PLAN.
--- NOTE | 2016-11-29 16:20 | NUR ---
Case management rounds to discuss discharge planning. Patient daughter, Liz, wants to send patient to [facility] for a few days prior to returning home.
[2016-11-29] MEDS: VANCOMYCIN HCL 1,000 MG in NS 250 ML IV SCH (18:09)
--- NOTE | 2016-11-29 18:21 | NUR ---
Rounds to check on patient at pm and give IVPB of vancomycin. Patient says she wants to talk to the health policy manager about how good the staff is. Thanked patient will notify charge nurse.
--- NOTE | 2016-11-29 20:05 | NUR ---
Initial note A/O x 3, no SOB, no chest pain, denied pain. Skin warm to touch, IV at L forearm and R hand, patent, and free of infection or infiltration. Open wounds at bilateral lower legs: scratches at R lower leg, one wound at L lower leg, and one wound at L heel, some drainage from L leg and L heel, covered with foam dressing, no odor, no s/s of infection. Clear lung sounds, active bowel sounds. +2 radial and pedal pulses. Continued contact isolation for MRSA-nares. Call light within reach, bed at lowest position, bed alarm on, will continue to monitor patient.
--- NOTE | 2016-11-29 20:10 | NUR ---
Void x 1 via bedpan Clear light yellow urine noted. Sally-care done.
[2016-11-29] MEDS: DONEPEZIL HCL 5 MG TABLET (ARICEPT) PO SCH (20:51)
[2016-11-29] MEDS: AMITRIPTYLINE HCL 25 MG TABLET (ELAVIL) PO SCH (20:52)
[2016-11-29] MEDS: ZOLPIDEM TARTRATE 5 MG TABLET PO SCH (20:52)
--- NOTE | 2016-11-29 21:30 | NUR ---
Void x 1 via bedpan Clear light yellow urine noted. Sally-care done.
--- NOTE | 2016-11-29 22:15 | NUR ---
Rounds A/O x 2, increased confusion, agitated, and anxious, patient wondering where she is, reoriented patient. Patient wanted to sit at edge of bed to eat chips and sandwich. Bed alarm in use. No SOB, no chest pain, denied pain. Will give Ativan later. Skin warm to touch, IV at L forearm and R hand. Dressing at R lower leg, L lower leg, and L heel. Continued contact isolation for MRSA-nares. Call light within reach, bed at lowest position, bed alarm on, will continue to monitor patient.
--- NOTE | 2016-11-29 22:25 | NUR ---
Ativan PO given and Void x 1 via bedpan
--- NOTE | 2016-11-30 00:15 | NUR ---
Rounds Sleeping in bed. No SOB, no chest pain, no grimacing. Continued contact isolation for MRSA-nares. Call light within reach, bed at lowest position, bed alarm on, will continue to monitor patient.
[2016-11-30 04:41] VITALS: BP 112/57; PULSE 76; RESP 18; TEMP 98.8; O2SAT 93
--- NOTE | 2016-11-30 06:46 | NUR ---
Closing note Sleeping in bed. No SOB, no chest pain, no grimacing. Continued contact isolation for MRSA-nares. Call light within reach, bed at lowest position, bed alarm on, will give report to incoming nurse
[2016-11-30 08:00] VITALS: BP 132/57; PULSE 70; RESP 16; TEMP 98.7; O2SAT 93
--- NOTE | 2016-11-30 08:00 | NUR ---
OPENING NOTE PT WAS SLEEPING UPON ENTERING ROOM, BUT SHE AROUSED EASILY. VS STABLE AND SHE IS NOT COMPLAINING OF PAIN. BOTH IV SITES ARE PATENT WITH NO S/S OF INFILTRATION. L HAND IS RUNNING NS AT 50mL/HOUR, L ARM IS SALINE LOCKED.
--- NOTE | 2016-11-30 10:00 | NUR ---
ROUNDS PT RESTING IN BED AND STATES SHE IS COMFORTABLE
[2016-11-30] MEDS: DOCUSATE SODIUM 250 MG CAPSULE PO SCH (10:15)
[2016-11-30] MEDS: GABAPENTIN 300 MG CAPSULE PO SCH ×2 (10:15→15:38)
[2016-11-30] MEDS: ATENOLOL 25 MG TABLET(TENORMIN) PO SCH (10:15)
[2016-11-30] MEDS: RIVAROXABAN 10 MG TABLET PO SCH (10:16)
[2016-11-30] MEDS: MUPIROCIN 2% TOPICAL OINTMENT 22 GM TP SCH (10:16)
[2016-11-30] MEDS: DULoxetine HCL 30 MG CAPSULE.DR (CYMBALTA) PO SCH (10:16)
[2016-11-30] MEDS: NACL 0.9% 1,000 ML IV SCH (10:21)
--- NOTE | 2016-11-30 10:48 | NUR ---
DISCHARGE PLANNING Called and spoke with Silvestre in admitting at [facility] who stated unable to accept patient back with currently ISO status. Silvestre stated she feels patient should go to SNF prior to returning back to [facility]. CHARLES Redd made aware and will follow up with patient/family on choice of SNF list. Addendum: 11/30/16 at 1222 by Padmini Swanson DP Faxed SNF referral to [phone]. Will follow up. Called and spoke with patient daughter Mariangel Benson [phone] agreeable with discharge plan to [facility] today. [facility] is family preferred facility. Addendum: 11/30/16 at 1414 by aPdmini Swanson DP Patient accepted and assigned to room 16 RN to report [phone] bed available anytime. 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 Placed transportation packet in nurse station. LUIS ALBERTO Lemus made aware.
[2016-11-30 12:00] VITALS: BP 119/62; PULSE 67; RESP 18; TEMP 99.1; O2SAT 96
--- NOTE | 2016-11-30 13:00 | NUR ---
PATIENTS DAUGHTER CALLED JUVENAL TEL: [phone] INFORMED THAT PATIENT WILL BE GOING TO [facility] AND IS AGREEABLE.
--- NOTE | 2016-11-30 14:14 | NUR ---
DC PLANNING: Spoke with pt. at bed side regarding transfering to snf. The pt. was not willing going to [facility] but she understood that with her conditions and the needs to be on antibiotic , wound care and her assisted ctr. unable to accept her back with active MRSA. The pt. made aware that she needs iv ABX x 7 days before returning back to her residence. The pt.'s dtrs. Deena and shantelle made aware via phone.
[2016-11-30 15:26] VITALS: BP 108/58; PULSE 63; RESP 16; TEMP 99.1; O2SAT 92
[2016-11-30 15:50] VITALS: BP 108/58; PULSE 63; RESP 16; TEMP 99.1; O2SAT 92
--- NOTE | 2016-11-30 15:57 | NUR ---
WOUND RE-EVALUATION: Patient received in a Thiago Bed with an IsoFlex ALESSIA mattress with low air-loss therapy, awake, alert, and appears to be upset. Patient is able to turn in bed independently. Amando Score is a 15, skin is thin, very little adipose tissue, and bony prominences present. 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 Extrinsic factors that delay wound healing: Decreased mobility. Microbiology: MRSA Screen in progress. Wound Assessment: 1) Left Medial Posterior Heel: Pressure Ulcer, present on admission. Wound bed is 100% pink tissue. No odor, no drainage. Sally-wound intact, with dry, flaky skin. Measures 0.5 cm x 0.5 cm x 0.2 cm. Recommend: Cleanse wound with normal saline. Place SurePrep onto sally-wound. Put Hydrogel onto wound bed. Cover with foam dressing. Perform wound care daily, and as needed for dressing soiling or dislodgement. 2) Left Mid Anterior Flores: Chronic wound, present on admission. Wound bed is 5% yellow tissue, 15% black eschar, 80% red tissue. No odor, no drainage. Dry, stable. Sally-wound intact. Measures 2.5 cm x 2.7 cm x 0.5 cm. Flores has blanchable redness. Soft raised area superior to wound. Recommend: Cleanse wound with normal saline. Place moisture barrier cream onto sally-wound. Put Hydrogel onto wound bed. Cover with foam dressing. Perform wound care daily, and as needed for dressing soiling or dislodgement. 3) Right Mid Anterior Lateral Flores: Multiple small chronic wounds, present on admission. Wound beds are 100% black eschar. No odor, no drainage. Dry, stable. Sally-wounds intact. Recommend continue: Cover with foam dressing. Perform site care daily, and as needed for dressing soiling or dislodgement. 4) Right Medial Ankle: Blanchable redness, present on admission. No odor, no drainage. 5) Right Foot, Toes 2, 3, and 5: Chronic wounds, present on admission. Wound beds are 100% black eschar for toes 2 and 3, 100% red eschar for 5th toe. No odor, no drainage. Dry, stable. Salyl-wounds intact. 6) Right Foot, Lateral Border: Blanchable redness with dark discoloration, present on admission. No odor, no drainage. Recommend continue: No dressings needed. Continue to monitor sites for worsening condition. Offload, elevate and float bilateral heels/feet with pillows at all times. Do not allow feet/heels/toes to touch bed, other surfaces, or other body parts. Also recommend continue: Encourage and assist patient as needed with repositioning side to side only every 2 hours with pillow support, and off-load pressure areas with pillows for pressure re-distribution. Offload, elevate and float bilateral heels with pillows at all times. Perform skin care and monitor skin integrity Q shift. Use moisture barrier cream on buttocks and other moisture susceptible areas QID and as needed for soiling. Maintain patient on a low air-loss mattress.
--- NOTE | 2016-11-30 15:57 | NUR ---
WOUND CARE AND PHOTOS TAKEN FOR DISCHARGE.
--- NOTE | 2016-11-30 16:44 | NUR ---
TELEPHONE REPORT CALLED AARTI AT [facility] AND PROVIDED REPORT
--- NOTE | 2016-11-30 18:25 | NUR ---
Discharge: Patient transported out via [facility] ambulance, stable, no distress, in good affect. Family aware.
== END 2016-11-30 18:25 | DRG 602 ==
LOC: SED 21:50 → SMU 11-26 02:57
PROVIDERS: ADMIT Family Medicine; ATTEND Family Medicine
DX: L03.119 Cellulitis of unspecified part of limb (principal); G93.41 Metabolic encephalopathy; G82.50 Quadriplegia, unspecified; E87.1 Hypo-osmolality and hyponatremia; I82.402 Acute embolism and thrombosis of unspecified deep veins of left lower extremity; E44.1 Mild protein-calorie malnutrition; Z68.1 Body mass index [BMI] 19.9 or less, adult; F33.3 Major depressive disorder, recurrent, severe with psychotic symptoms; K59.00 Constipation, unspecified; G31.84 Mild cognitive impairment of uncertain or unknown etiology; G89.4 Chronic pain syndrome; I10 Essential (primary) hypertension; M81.0 Age-related osteoporosis without current pathological fracture; F41.9 Anxiety disorder, unspecified; D64.9 Anemia, unspecified; G30.9 Alzheimer's disease, unspecified; F10.21 Alcohol dependence, in remission; T40.2X5A Adverse effect of other opioids, initial encounter; K21.9 Gastro-esophageal reflux disease without esophagitis; M19.90 Unspecified osteoarthritis, unspecified site; E86.0 Dehydration; G62.9 Polyneuropathy, unspecified; Z99.3 Dependence on wheelchair; Y92.89 Other specified places as the place of occurrence of the external cause; Z87.11 Personal history of peptic ulcer disease; Z79.899 Other long term (current) drug therapy; V89.2XXS Person injured in unspecified motor-vehicle accident, traffic, sequela; Z88.2 Allergy status to sulfonamides; Z22.322 Carrier or suspected carrier of Methicillin resistant Staphylococcus aureus; Z86.14 Personal history of Methicillin resistant Staphylococcus aureus infection; Z79.01 Long term (current) use of anticoagulants
CPT/HCPCS: 36415; 70450-TC; 71010; 80048; 80053; 80307; 81000-TC; 81003; 82550-TC; 83605; 83735-TC; 84484; 85025; 85610-TC; 85730-TC; 87040-TC; 87081; 87086; 93005; 99285; G0480; G0481; G0482; J0692; J2270; J2274; J3370; J3411; J3475; J3490; J7030; J7042; J7050; J7060

== ENCOUNTER 2017-03-30 13:18 | Inpatient (IN) | payer OTHER, MEDICAID ==
[~2017-03-30] VITALS: Ht 152.4 cm; Wt 40.8 kg
[~2017-03-30 13:18] MED LIST changes: -ATENOLOL; +ESOM20CA38 PO; -GUAI-787 PO; -IBUP-1969 PO; -LEVO750T45 PO; -LORA0.5T PO; -LORAZEPAM; -MORP15TA PO; -MORPHINE; -MULT-1117 PO; -ZIN220 PO; -ZOLPIDEM; -[UNRECOGNIZED DRUG - CODE] PO
[2017-03-30 13:20] VITALS: BP_SYST 129
[2017-03-30] MEDS ORDERED: ALBUTEROL SULFATE 0.083% 2.5 MG/3 ML VIAL.NEB INH ONE (14:00)
[2017-03-30 15:03] LABS: ANION GAP 6 (5-15); CALCIUM 8.6 mg/dL (8.4-11.0); CHLORIDE 104 mmol/L (98-107); CREATININE 0.53 mg/dL (0.55-1.30); GLUCOSE 114 mg/dL (70-99); POTASSIUM 3.4 mmol/L (3.5-5.1); SODIUM SERUM 137 mmol/L (136-145); UREA NITROGEN, BLOOD 11 mg/dL (8-21)
[2017-03-30 15:06] LABS: INR 1.7 (0.8-1.2); MEAN CORPUSCULAR HEMOGLOBIN 20 pg (27-31); MEAN CORPUSCULAR HGB CONC 30 % (32-36); MEAN CORPUSCULAR VOLUME 69 fL (79.0-98.0); PLATELET COUNT (AUTO) 247 K/uL (130-430); PROTHROMBIN TIME 19.1 SECS (9.5-12.5); RED BLOOD CELL COUNT(AUTO) 3.17 MIL/uL (4.2-6.2); RED CELL DISTRIBUTION WIDTH 20.5 % (9.0-15.0); WHITE BLOOD COUNT (AUTO) 5.9 K/uL (4.8-10.8)
[2017-03-30 15:11] LABS: HEMATOCRIT 21.8 % (36-48); HEMOGLOBIN 6.4 g/dL (12.0-16.0)
[2017-03-30 15:20] LABS: ALANINE AMINOTRANSFERASE 18 U/L (12-78); ALBUMIN 2.7 g/dL (3.4-4.8); ASPARTATE AMINOTRANSFERASE 24 U/L (10-37); FREE T4 (FREE THYROXINE) 0.8 ng/dL (0.6-1.6); TOTAL BILIRUBIN 0.6 mg/dL (0.0-1.0)
[2017-03-30 15:22] LABS: ALCOHOL, BLOOD < 3 mg/dL (<10)
[2017-03-30] MEDS ORDERED: POTASSIUM CHLORIDE 20 MEQ TAB.PRT.SR PO ONE ×2 (15:30→16:30)
[2017-03-30 15:34] LABS: BILIRUBIN,URINE 1+ (NEGATIVE); BLOOD, URINE 3+ (NEGATIVE); CLARITY/URINE SL HAZY (CLEAR); COLOR,URINE YELLOW (YELLOW); GLUCOSE,URINE NEGATIVE (NEGATIVE); KETONES,URINE 2+ (NEGATIVE); LEUKOCYTE ESTERASE ,URINE NEGATIVE (NEGATIVE); NITRITE, URINE NEGATIVE (NEGATIVE); PROTEIN URINE TRACE (NEGATIVE)
[2017-03-30 16:10] LABS: BACTERIA,URINE FEW /HPF (None Seen); RBC,URINE >100 /HPF (0-3); WBC,URINE 0-3 /HPF (0-3)
[2017-03-30] MEDS ORDERED: cefTRIAXone 1 GM in D5W 50 ML IV ONE (16:15)
[2017-03-30 16:37] LABS: BARBITURATE, URINE NEGATIVE (NEG <=200); BENZODIAZEPINE, URINE POSITIVE (NEG <=150); METHAMPHETAMINES SCREEN,URINE NEGATIVE (NEG <=500); URINE AMPHETAMINE NEGATIVE (NEG <=500); URINE METHADONE NEGATIVE (NEG <=200)
[2017-03-30 16:38] LABS: CANNABINOID, URINE NEGATIVE (NEG <=50); COCAINE, URINE NEGATIVE (NEG <=150); OPIATE, URINE POSITIVE (NEG <=100); PHENCYCLIDINE SCREEN,URINE NEGATIVE (NEG <=25); UR TRICYCLIC ANTIDEPRESSANTS POSITIVE (NEG <=300); URINE OXYCODONE SCREEN NEGATIVE (NEG <=100); URINE PROPOXYPHENE SCREEN NEGATIVE (NEG <=300)
[2017-03-30 16:38] LABS: BAND % (MANUAL) 12 % (0-6); BASOPHILS % (MANUAL) 1 % (0-2); EOSINOPHILS % (MANUAL) 0 % (0-7); LYMPHOCYTES % (MANUAL) 8 % (20-46); MONOCYTES % (MANUAL) 4 % (0-11)
[2017-03-30] MEDS ORDERED: ACETAMINOPHEN 500 MG TABLET PO ONE (16:45)
[2017-03-30] MEDS ORDERED: cefTRIAXone 1 GM VIAL ONE (16:47)
[2017-03-30] MEDS ORDERED: ALENDRONATE SODIUM 70 MG TABLET (FOSAMAX) PO SCH (17:15)
[2017-03-30 17:45] VITALS: BP_SYST 116
[2017-03-30] MEDS: DULoxetine HCL 30 MG CAPSULE.DR (CYMBALTA) PO SCH (22:12)
[2017-03-30] MEDS: ZOLPIDEM TARTRATE 5 MG TABLET PO SCH (22:12)
[2017-03-30] MEDS: GABAPENTIN 300 MG CAPSULE PO SCH (22:12)
[2017-03-30] MEDS: AMITRIPTYLINE HCL 25 MG TABLET (ELAVIL) PO SCH (22:13)
[2017-03-30] MEDS: DONEPEZIL HCL 5 MG TABLET (ARICEPT) PO SCH (22:13)
[2017-03-31 00:30] VITALS: BP_SYST 108
[2017-03-31 03:40] VITALS: BP_SYST 106
[2017-03-31 07:43] LABS: BASOPHILS % (AUTO) 0.9 % (0.0-2.0); EOSINOPHILS # (AUTO) 0.1 K/uL (0.0-0.4); EOSINOPHILS % (AUTO) 2.6 % (0.0-4.0); HEMATOCRIT 30.5 % (36-48); HEMOGLOBIN 9.2 g/dL (12.0-16.0); LYMPHOCYTES # (AUTO) 0.9 K/uL (1.0-5.5); LYMPHOCYTES % (AUTO) 16.8 % (20.5-51.5); MEAN CORPUSCULAR HEMOGLOBIN 23 pg (27-31); MEAN CORPUSCULAR HGB CONC 30 % (32-36); MEAN CORPUSCULAR VOLUME 76 fL (79.0-98.0); MONOCYTES # (AUTO) 0.7 K/uL (0.0-1.0); MONOCYTES % (AUTO) 13.7 % (1.7-9.3); NEUTROPHILS # (AUTO) 3.6 K/uL (1.8-7.7); PLATELET COUNT (AUTO) 235 K/uL (130-430); RED BLOOD CELL COUNT(AUTO) 4.04 MIL/uL (4.2-6.2); RED CELL DISTRIBUTION WIDTH 22.5 % (9.0-15.0)
[2017-03-31 07:50] LABS: WHITE BLOOD COUNT (AUTO) 5.3 K/uL (4.8-10.8)
[2017-03-31 07:53] LABS: ANION GAP 3 (5-15); CALCIUM 8.1 mg/dL (8.4-11.0); CHLORIDE 106 mmol/L (98-107); CREATININE 0.48 mg/dL (0.55-1.30); GLUCOSE 91 mg/dL (70-99); POTASSIUM 4.1 mmol/L (3.5-5.1); SODIUM SERUM 137 mmol/L (136-145); UREA NITROGEN, BLOOD 9 mg/dL (8-21)
[2017-03-31] MEDS: PANTOPRAZOLE SODIUM 40 MG TAB PO SCH (08:50)
[2017-03-31] MEDS: GABAPENTIN 300 MG CAPSULE PO SCH ×3 (08:50→22:35)
[2017-03-31] MEDS: DOCUSATE SODIUM 250 MG CAPSULE PO SCH (08:51)
[2017-03-31] MEDS: DULoxetine HCL 30 MG CAPSULE.DR (CYMBALTA) PO SCH ×2 (08:51→22:35)
[2017-03-31] MEDS: ATENOLOL 25 MG TABLET(TENORMIN) PO SCH (08:53)
[2017-03-31] MEDS ORDERED: NON-FORMULARY MEDICATION (Omeprazole 20 MG) PO SCH (09:00)
[2017-03-31] MEDS ORDERED: ESOMEPRAZOLE MAGNESIUM 20 MG PO SCH (09:00)
[2017-03-31] MEDS: LORazepam 1 MG TABLET PO PRN (12:31)
[2017-03-31 12:36] VITALS: BP_SYST 140
[2017-03-31 16:09] VITALS: BP_SYST 138
[2017-03-31] MEDS: cefTRIAXone 1 GM in D5W 50 ML IV SCH (16:36)
[2017-03-31 19:46] VITALS: BP_SYST 124
[2017-03-31] MEDS: MUPIROCIN 2% TOPICAL OINTMENT 22 GM TP SCH (21:00)
[2017-03-31] MEDS: AMITRIPTYLINE HCL 25 MG TABLET (ELAVIL) PO SCH (22:35)
[2017-03-31] MEDS: ZOLPIDEM TARTRATE 5 MG TABLET PO SCH (22:35)
[2017-03-31] MEDS: DONEPEZIL HCL 5 MG TABLET (ARICEPT) PO SCH (22:36)
[2017-04-01] VITALS (7 sets, daily range): BP systolic 116–146
[2017-04-01 07:25] LABS: BASOPHILS % (AUTO) 0.2 % (0.0-2.0); EOSINOPHILS # (AUTO) 0.1 K/uL (0.0-0.4); MEAN CORPUSCULAR VOLUME 75 fL (79.0-98.0); NEUTROPHILS # (AUTO) 4.1 K/uL (1.8-7.7); PLATELET COUNT (AUTO) 261 K/uL (130-430); WHITE BLOOD COUNT (AUTO) 5.9 K/uL (4.8-10.8)
[2017-04-01] MEDS: LORazepam 1 MG TABLET PO PRN ×2 (07:38→23:26)
[2017-04-01 07:45] LABS: EOSINOPHILS % (AUTO) 1.5 % (0.0-4.0); HEMATOCRIT 31.5 % (36-48); HEMOGLOBIN 9.6 g/dL (12.0-16.0); LYMPHOCYTES # (AUTO) 0.8 K/uL (1.0-5.5); LYMPHOCYTES % (AUTO) 12.7 % (20.5-51.5); MEAN CORPUSCULAR HEMOGLOBIN 23 pg (27-31); MEAN CORPUSCULAR HGB CONC 31 % (32-36); MONOCYTES # (AUTO) 0.9 K/uL (0.0-1.0); MONOCYTES % (AUTO) 14.4 % (1.7-9.3); NEUTROPHILS % (AUTO) 71.2 % (40.0-70.0); RED BLOOD CELL COUNT(AUTO) 4.19 MIL/uL (4.2-6.2); RED CELL DISTRIBUTION WIDTH 22.4 % (9.0-15.0)
[2017-04-01 07:48] LABS: ANION GAP 4 (5-15); CALCIUM 8.3 mg/dL (8.4-11.0); CHLORIDE 105 mmol/L (98-107); CREATININE 0.59 mg/dL (0.55-1.30); GLUCOSE 160 mg/dL (70-99); POTASSIUM 3.5 mmol/L (3.5-5.1); SODIUM SERUM 138 mmol/L (136-145); UREA NITROGEN, BLOOD 6 mg/dL (8-21)
[2017-04-01] MEDS: PANTOPRAZOLE SODIUM 40 MG TAB PO SCH (08:42)
[2017-04-01] MEDS: MUPIROCIN 2% TOPICAL OINTMENT 22 GM TP SCH ×2 (08:42→21:49)
[2017-04-01] MEDS: GABAPENTIN 300 MG CAPSULE PO SCH ×3 (08:42→21:34)
[2017-04-01] MEDS: DULoxetine HCL 30 MG CAPSULE.DR (CYMBALTA) PO SCH ×2 (08:42→21:34)
[2017-04-01] MEDS: DOCUSATE SODIUM 250 MG CAPSULE PO SCH (08:43)
[2017-04-01] MEDS: ATENOLOL 25 MG TABLET(TENORMIN) PO SCH (08:43)
[2017-04-01] MEDS: cefTRIAXone 1 GM in D5W 50 ML IV SCH (16:57)
[2017-04-01] MEDS: ZOLPIDEM TARTRATE 5 MG TABLET PO SCH (21:34)
[2017-04-01] MEDS: DONEPEZIL HCL 5 MG TABLET (ARICEPT) PO SCH (21:34)
[2017-04-01] MEDS: AMITRIPTYLINE HCL 25 MG TABLET (ELAVIL) PO SCH (21:34)
[2017-04-01] MEDS: HEPARIN SODIUM,PORCINE 5000 UNITS/ML VIAL SUBCUT SCH (21:36)
[2017-04-02 04:00] VITALS: BP_SYST 127
[2017-04-02 06:56] LABS: BASOPHILS % (AUTO) 0.4 % (0.0-2.0); EOSINOPHILS # (AUTO) 0.3 K/uL (0.0-0.4); EOSINOPHILS % (AUTO) 5.1 % (0.0-4.0); HEMATOCRIT 31.1 % (36-48); HEMOGLOBIN 9.6 g/dL (12.0-16.0); LYMPHOCYTES # (AUTO) 1.2 K/uL (1.0-5.5); LYMPHOCYTES % (AUTO) 21.6 % (20.5-51.5); MEAN CORPUSCULAR HEMOGLOBIN 23 pg (27-31); MEAN CORPUSCULAR HGB CONC 31 % (32-36); MEAN CORPUSCULAR VOLUME 75 fL (79.0-98.0); MONOCYTES # (AUTO) 0.9 K/uL (0.0-1.0); MONOCYTES % (AUTO) 16.5 % (1.7-9.3); NEUTROPHILS # (AUTO) 3.1 K/uL (1.8-7.7); NEUTROPHILS % (AUTO) 56.4 % (40.0-70.0); PLATELET COUNT (AUTO) 283 K/uL (130-430); RED BLOOD CELL COUNT(AUTO) 4.13 MIL/uL (4.2-6.2); RED CELL DISTRIBUTION WIDTH 22.8 % (9.0-15.0); WHITE BLOOD COUNT (AUTO) 5.5 K/uL (4.8-10.8)
[2017-04-02 06:57] LABS: ANION GAP 2 (5-15); CALCIUM 8.5 mg/dL (8.4-11.0); CHLORIDE 104 mmol/L (98-107); CREATININE 0.47 mg/dL (0.55-1.30); GLUCOSE 100 mg/dL (70-99); POTASSIUM 3.8 mmol/L (3.5-5.1); SODIUM SERUM 137 mmol/L (136-145); UREA NITROGEN, BLOOD 6 mg/dL (8-21)
[2017-04-02 07:08] LABS: INR 1.1 (0.8-1.2); PROTHROMBIN TIME 12.3 SECS (9.5-12.5)
[2017-04-02 07:28] LABS: TOTAL IRON BIND. CAPACITY 309 ug/dL (250-450)
[2017-04-02 08:00] VITALS: BP_SYST 132
[2017-04-02] MEDS: GABAPENTIN 300 MG CAPSULE PO SCH ×3 (09:16→20:47)
[2017-04-02] MEDS: DULoxetine HCL 30 MG CAPSULE.DR (CYMBALTA) PO SCH ×2 (09:16→20:46)
[2017-04-02] MEDS: PANTOPRAZOLE SODIUM 40 MG TAB PO SCH (09:16)
[2017-04-02] MEDS: DOCUSATE SODIUM 250 MG CAPSULE PO SCH (09:16)
[2017-04-02] MEDS: ATENOLOL 25 MG TABLET(TENORMIN) PO SCH (09:16)
[2017-04-02] MEDS: MUPIROCIN 2% TOPICAL OINTMENT 22 GM TP SCH ×2 (09:19→22:02)
[2017-04-02 12:53] VITALS: BP_SYST 127
[2017-04-02] MEDS: cefTRIAXone 1 GM in D5W 50 ML IV SCH (16:44)
[2017-04-02 16:57] VITALS: BP_SYST 108
[2017-04-02 19:50] VITALS: BP_SYST 129
[2017-04-02] MEDS: AMITRIPTYLINE HCL 25 MG TABLET (ELAVIL) PO SCH (20:46)
[2017-04-02] MEDS: DONEPEZIL HCL 5 MG TABLET (ARICEPT) PO SCH (20:47)
[2017-04-02] MEDS: ZOLPIDEM TARTRATE 5 MG TABLET PO SCH (20:47)
[2017-04-02] MEDS: HEPARIN SODIUM,PORCINE 5000 UNITS/ML VIAL SUBCUT SCH (20:55)
[2017-04-03 00:35] VITALS: BP_SYST 106
[2017-04-03 04:30] VITALS: BP_SYST 107
[2017-04-03 08:00] VITALS: BP_SYST 125
[2017-04-03] MEDS: PANTOPRAZOLE SODIUM 40 MG TAB PO SCH (10:05)
[2017-04-03] MEDS: DOCUSATE SODIUM 250 MG CAPSULE PO SCH (10:05)
[2017-04-03] MEDS: DULoxetine HCL 30 MG CAPSULE.DR (CYMBALTA) PO SCH (10:06)
[2017-04-03] MEDS: GABAPENTIN 300 MG CAPSULE PO SCH (10:06)
[2017-04-03] MEDS: ATENOLOL 25 MG TABLET(TENORMIN) PO SCH (10:07)
[2017-04-03] MEDS: MUPIROCIN 2% TOPICAL OINTMENT 22 GM TP SCH (10:19)
[2017-04-03 12:00] VITALS: BP_SYST 129
[2017-04-03 14:30] VITALS: BP_SYST 121
== END 2017-04-03 14:51 | disposition home health service (06) | DRG 602 ==
LOC: SED 13:18 → STU 17:12 → SMU 03-31 12:58
PROVIDERS: ADMIT Family Medicine; ATTEND Internal Medicine
PROC: 30233N1 Transfusion of Nonautologous Red Blood Cells into Peripheral Vein, Percutaneous Approach (ICD-10-PCS; principal; 2017-03-31)
DX: L03.116 Cellulitis of left lower limb (principal); G82.50 Quadriplegia, unspecified; E43 Unspecified severe protein-calorie malnutrition; G93.40 Encephalopathy, unspecified; G62.9 Polyneuropathy, unspecified; S02.40CA Maxillary fracture, right side, initial encounter for closed fracture; S81.812A Laceration without foreign body, left lower leg, initial encounter; Z68.1 Body mass index [BMI] 19.9 or less, adult; D53.9 Nutritional anemia, unspecified; K59.00 Constipation, unspecified; S80.12XA Contusion of left lower leg, initial encounter; R09.02 Hypoxemia; F32.9 Major depressive disorder, single episode, unspecified; G31.84 Mild cognitive impairment of uncertain or unknown etiology; F41.9 Anxiety disorder, unspecified; K21.9 Gastro-esophageal reflux disease without esophagitis; M19.90 Unspecified osteoarthritis, unspecified site; Z96.642 Presence of left artificial hip joint; I10 Essential (primary) hypertension; G89.4 Chronic pain syndrome; M81.0 Age-related osteoporosis without current pathological fracture; W19.XXXA Unspecified fall, initial encounter; Y93.89 Activity, other specified; Y92.89 Other specified places as the place of occurrence of the external cause; Y99.8 Other external cause status; Z99.3 Dependence on wheelchair; Z88.2 Allergy status to sulfonamides; Z86.718 Personal history of other venous thrombosis and embolism; Z79.899 Other long term (current) drug therapy; Z91.81 History of falling; Z22.322 Carrier or suspected carrier of Methicillin resistant Staphylococcus aureus
CPT/HCPCS: 36415; 36600; 70450-TC; 70486-TC; 71010; 74000-TC; 80048; 80053; 80307; 81000-TC; 82140-TC; 82728; 82803-TC; 83540-TC; 83550-TC; 83605; 83735-TC; 83880; 84439; 84484; 85007; 85025; 85027; 85610-TC; 85730-TC; 86886; 86900; 86901; 86920; 87040-TC; 87081; 93005; 93971; 94640; 96365; 97110-GP; 97116-GP; 97530-GP; 99285; G0482; J0696; J1644; J7040; J7050; J7060; P9021

== ENCOUNTER 2017-07-25 12:31 | Emergency (ER) | payer OTHER, MEDICAID ==
[~2017-07-25] VITALS: Ht 149.9 cm; Wt 43.1 kg
[~2017-07-25 12:31] MED LIST changes: +ALEN10TA6 PO; -ALEN70TA3 PO; +HYDR-3111 PO; +IBUP-1969 PO; +LORA-258 PO; +METO-304; +RIVA1TAB PO
[2017-07-25 12:46] VITALS: BP_SYST 117
[2017-07-25 14:02] LABS: BASOPHILS % (AUTO) 0.8 % (0.0-2.0); EOSINOPHILS % (AUTO) 0.7 % (0.0-4.0); HEMATOCRIT 32.6 % (36-48); HEMOGLOBIN 10.2 g/dL (12.0-16.0); LYMPHOCYTES % (AUTO) 22.6 % (20.5-51.5); MEAN CORPUSCULAR HEMOGLOBIN 26 pg (27-31); MEAN CORPUSCULAR HGB CONC 31 % (32-36); MEAN CORPUSCULAR VOLUME 83 fL (79.0-98.0); MONOCYTES # (AUTO) 0.2 K/uL (0.0-1.0); MONOCYTES % (AUTO) 5.5 % (1.7-9.3); NEUTROPHILS # (AUTO) 3.2 K/uL (1.8-7.7); NEUTROPHILS % (AUTO) 70.4 % (40.0-70.0); PLATELET COUNT (AUTO) 235 K/uL (130-430); RED BLOOD CELL COUNT(AUTO) 3.93 MIL/uL (4.2-6.2); RED CELL DISTRIBUTION WIDTH 18.9 % (9.0-15.0); WHITE BLOOD COUNT (AUTO) 4.4 K/uL (4.8-10.8)
[2017-07-25 14:14] LABS: ANION GAP 5 (5-15); CALCIUM 8.5 mg/dL (8.4-11.0); CHLORIDE 105 mmol/L (98-107); CREATININE 0.48 mg/dL (0.55-1.30); GLUCOSE 105 mg/dL (70-99); POTASSIUM 3.8 mmol/L (3.5-5.1); SODIUM SERUM 139 mmol/L (136-145); UREA NITROGEN, BLOOD 9 mg/dL (8-21)
[2017-07-25 14:16] LABS: INR 1.2 (0.8-1.2)
[2017-07-25 14:18] LABS: ALANINE AMINOTRANSFERASE 28 U/L (12-78); ASPARTATE AMINOTRANSFERASE 29 U/L (10-37); TOTAL BILIRUBIN 0.5 mg/dL (0.0-1.0)
[2017-07-25 14:20] LABS: ALCOHOL, BLOOD < 3 mg/dL (<10)
[2017-07-25 14:29] LABS: ACETAMINOPHEN < 1 ug/mL (1-30)
[2017-07-25 14:50] LABS: BILIRUBIN,URINE NEGATIVE (NEGATIVE); BLOOD, URINE NEGATIVE (NEGATIVE); CLARITY/URINE CLEAR (CLEAR); COLOR,URINE YELLOW (YELLOW); GLUCOSE,URINE NEGATIVE (NEGATIVE); KETONES,URINE TRACE (NEGATIVE); LEUKOCYTE ESTERASE ,URINE NEGATIVE (NEGATIVE); NITRITE, URINE NEGATIVE (NEGATIVE); PROTEIN URINE TRACE (NEGATIVE)
[2017-07-25 15:02] LABS: BACTERIA,URINE FEW /HPF (None Seen); RBC,URINE 0-3 /HPF (0-3)
[2017-07-25 15:12] LABS: BENZODIAZEPINE, URINE POSITIVE (NEG <=150); OPIATE, URINE POSITIVE (NEG <=100); UR TRICYCLIC ANTIDEPRESSANTS POSITIVE (NEG <=300)
[2017-07-25 15:13] LABS: BARBITURATE, URINE NEGATIVE (NEG <=200); CANNABINOID, URINE NEGATIVE (NEG <=50); COCAINE, URINE NEGATIVE (NEG <=150); METHAMPHETAMINES SCREEN,URINE NEGATIVE (NEG <=500); PHENCYCLIDINE SCREEN,URINE NEGATIVE (NEG <=25); URINE AMPHETAMINE NEGATIVE (NEG <=500); URINE METHADONE NEGATIVE (NEG <=200); URINE OXYCODONE SCREEN NEGATIVE (NEG <=100); URINE PROPOXYPHENE SCREEN NEGATIVE (NEG <=300)
[2017-07-25 16:19] VITALS: BP_SYST 114
== END 2017-07-25 16:19 | disposition home or self-care (01) ==
LOC: SED 12:31
DX: M41.9 Scoliosis, unspecified (principal); M19.90 Unspecified osteoarthritis, unspecified site; G89.29 Other chronic pain; M54.5 Low back pain; J84.89 Other specified interstitial pulmonary diseases; Q79.1 Other congenital malformations of diaphragm; F03.90 Unspecified dementia, unspecified severity, without behavioral disturbance, psychotic disturbance, mood disturbance, and anxiety; F41.9 Anxiety disorder, unspecified; K21.9 Gastro-esophageal reflux disease without esophagitis; I10 Essential (primary) hypertension; Z88.2 Allergy status to sulfonamides; Z79.899 Other long term (current) drug therapy; S00.12XA Contusion of left eyelid and periocular area, initial encounter; W05.0XXA Fall from non-moving wheelchair, initial encounter; Y93.89 Activity, other specified; Y92.89 Other specified places as the place of occurrence of the external cause; Y99.8 Other external cause status
CPT/HCPCS: 36415; 71010; 71250; 80053; 80307; 81000; 82550; 84484; 85025; 85610; 85730; 93005; 99285; G0480; G0481; G0482